=== PATIENT | female | born 1950 | race African-American/Black ===

== ENCOUNTER → 2020-06-15 | Outpatient (CLI) | payer MEDICARE ==
[~2020-06-15] MED LIST: ATOR10TA60 PO; CETI10TA16 PO; HYDR-2761 PO; LOSA1TAB25 PO; PANT40TA77 PO; POTA8CAP19 PO; SIMV20TA18 PO; atorvastatin PO
[2020-06-15 11:01] LABS: BASO % 1 % (0-3); EOS # 0.1 x10^3/uL (0.0-0.7); EOS % 1 % (0-3); HEMATOCRIT 43.6 % (36.0-47.0); HEMOGLOBIN 14.1 g/dL (12.0-15.5); LYMPH # 1.5 x10^3/uL (1.0-4.8); LYMPH % 33 % (24-48); MEAN CORPUSCULAR HEMOGLOBIN 27 pg (25-35); MEAN CORPUSCULAR HGB CONC 32 g/dL (31-37); MEAN CORPUSCULAR VOLUME 82 fL (79-100); MONO # 0.5 x10^3/uL (0.0-1.1); MONO % 12 % (0-9); NEUT # 2.3 x10^3/uL (1.8-7.7); NEUT % 52 % (31-73); PLATELET COUNT 193 x10^3/uL (140-400); RED BLOOD COUNT 5.31 x10^6/uL (3.50-5.40)
[2020-06-15 22:28] LABS: WHITE BLOOD COUNT 4.4 x10^3/uL (4.0-11.0)
[2020-06-16 17:10] LABS: KAPPA LAMBDA RATIO 1.54 (0.26-1.65); LAMBDA FREE 13.6 mg/L (5.7-26.3)
[2020-06-19 15:12] LABS: COMMENT IMMUNOFIX SERUM Note: (.); IMMUNOGLOBULIN A 203 mg/dL (87-352); IMMUNOGLOBULIN G 1303 mg/dL (586-1602); IMMUNOGLOBULIN M 58 mg/dL (26-217)
[2020-06-19 21:08] LABS: ALBUM 3.3 g/dL (2.9-4.4); ALPHA 1 0.3 g/dL (0.0-0.4); ALPHA 2 0.9 g/dL (0.4-1.0); BETA 0.9 g/dL (0.7-1.3); GAMMA 1.3 g/dL (0.4-1.8); PROTEIN TOTAL 6.7 g/dL (6.0-8.5)
== END ==
LOC: ONCLAB 10:08
PROVIDERS: ATTEND Internal Medicine Hematology & Oncology
DX: C86.6 Primary cutaneous CD30-positive T-cell proliferations (principal)
CPT/HCPCS: 36415; 82784; 83520; 83615; 84165; 85025; 86334; 86703; 86705; 86709; 86803; 87340; 88184; 88185

== ENCOUNTER → 2020-06-16 | Outpatient (CLI) | payer MEDICARE ==
--- NOTE | 2020-06-16 13:50 | RAD ---
EXAM: NM PET/CT SKULL BASE TO MID THIGH EXAM DATE: 06/16/2020 INDICATION: Primary cutaneous T-cell lymphoma. By report, patient has not yet received the Covid vacc ine. RADIOPHARMACEUTICAL: 14.8 mCi of F-18 Fluorodeoxyglucose (FDG) I.V. via the left hand. TECHNIQUE: Patient weight: 238 pounds. Following at least four-hour fasting, the patient's blood gluc ose was 103 mg/dl. Approximately 1 1/2 hours after administration of FDG, overlapping emission scann ing was performed from the orbital meatal line through the pelvis. A low-dose CT was performed for a ttenuation correction purposes and anatomic localization. Fused images of PET and CT were reviewed. Any standardized uptake values (SUV) reported are maximum values within a volume region of interest, expressed in gm/ml. COMPARISON: No relevant comparisons currently available FINDINGS: PET: In the head and neck, infrazygomatic left facial skin thickening and associated 8mm subcutaneous nodu le shows abnormal FDG uptake to max SUV of 6.0. At the inferior aspect of the left parotid gland is an ill-defined 1.3 cm nodule that shows FDG uptak e to max SUV of 4.9 (fused axial image 24 series 603, attenuation correction image 58 of axial series 3). In the chest, mildly asymmetrically larger left level 1 axillary lymph nodes show FDG uptake to max S UV of 2.0 (attenuation correction and image 108 of series 3). The background mediastinal uptake is 3. 51. In the abdomen and pelvis, no abnormal FDG uptake is identified. Background FDG activity in the liver is 3.61. No abnormal uptake in the bones. 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 There is a 1.3 cm low-density ovoid nodule in the right thyr oid (that is not hypermetabolic on PET). No cervical adenopathy. In the chest, mediastinum shows a normal sized heart with coronary calcifications along the LAD. No p ericardial effusion. No aneurysm in the thoracic aorta. Scattered calcifications at the origin of the supra aortic great vessels. No mediastinal mass or adenopathy. Unremarkable lungs show upper lobe pr edominant early centrilobular emphysematous changes. No suspicious lung nodules or masses. No pneumot horax or pleural effusion. Bony thorax is intact. No skin thickening or unexpected subcutaneous nodul es. There are 2 nodules in the inferior left breast measuring between 4 and 5 mm (image 160 of series 3) that are compatible with small lymph nodes. In the abdomen and pelvis, the liver, spleen, adrenal glands and left kidney are unremarkable. Right kidney contains a few nonobstructing stones. There is no abdominal adenopathy or mass demonstrated on noncontrast CT. Bowel shows no evidence of obstruction, perforation or obvious acute inflammation. T here are multiple colonic diverticuli primarily in the descending colon. The appendix is normal. The uterus is surgically absent. No adnexal mass or fluid collection. The osseous structures show multilevel lower lumbar spinal facet and disc degenerative changes. No ac confederated goshute or aggressive appearing osseous lesions. IMPRESSION: Abnormal FDG uptake in the left cheek and possibly in an intraparotid nodule that could represent a l ymph node or primary salivary gland mass. Ultrasound could be performed and further consideration if clinically warranted. Otherwise no abnormal FDG uptake suspicious for metabolically active disease in the included field of view. There is slightly asymmetrically larger left axillary lymph nodes that s how uptake less than background mediastinal activity and are likely reactive. Electronically signed by: Yolande Faulkner MD (06/16/2020 1:47 PM) [id number]
== END ==
LOC: PETSC 09:31
PROVIDERS: ATTEND Internal Medicine Hematology & Oncology
DX: C86.6 Primary cutaneous CD30-positive T-cell proliferations (principal)
CPT/HCPCS: 78815; A9552

== ENCOUNTER 2020-06-20 06:43 | Outpatient (CLI) | payer MEDICARE ==
[~2020-06-20] VITALS: Ht 170.2 cm; Wt 108.0 kg
[2020-06-20] VITALS (8 sets, daily range): BP systolic 82–152; BP diastolic 60–91
[~2020-06-20 06:43] MED LIST changes: -ATOR10TA60 PO; -CETI10TA16 PO; -HYDR-2761 PO; -LOSA1TAB25 PO; -PANT40TA77 PO; -POTA8CAP19 PO; -atorvastatin PO
[2020-06-20 07:30] LABS: BASO % 1 % (0-3); EOS # 0.1 x10^3/uL (0.0-0.7); EOS % 3 % (0-3); HEMATOCRIT 41.6 % (36.0-47.0); HEMOGLOBIN 13.7 g/dL (12.0-15.5); LYMPH # 1.5 x10^3/uL (1.0-4.8); LYMPH % 33 % (24-48); MEAN CORPUSCULAR HEMOGLOBIN 27 pg (25-35); MEAN CORPUSCULAR HGB CONC 33 g/dL (31-37); MEAN CORPUSCULAR VOLUME 81 fL (79-100); MONO # 0.7 x10^3/uL (0.0-1.1); MONO % 14 % (0-9); NEUT # 2.3 x10^3/uL (1.8-7.7); NEUT % 49 % (31-73); PLATELET COUNT 184 x10^3/uL (140-400); RED BLOOD COUNT 5.14 x10^6/uL (3.50-5.40); RED CELL DISTRIBUTION WIDTH 15.9 % (11.5-14.5); WHITE BLOOD COUNT 4.7 x10^3/uL (4.0-11.0)
[2020-06-20 07:39] LABS: PROTHROMBIN TIME PATIENT 13.3 SEC (11.7-14.0)
[2020-06-20] MEDS ORDERED: LIDOCAINE WITH 8.4% SOD BICARB 3 ML DISP.SYRIN. ONE (07:45)
[2020-06-20] MEDS ORDERED: MIDAZOLAM HCL/PF 2 MG/2 ML VIAL. ONE (08:11)
[2020-06-20] MEDS ORDERED: fentaNYL PF VIAL 100 MCG/2 ML VIAL ONE (08:11)
[2020-06-20] MEDS ORDERED: LOSA1TAB25 PO (08:11)
[2020-06-20] MEDS ORDERED: atorvastatin PO (08:11)
[2020-06-20] MEDS ORDERED: MIDAZOLAM HCL/PF 2 MG/2 ML VIAL. IV ONE (08:30)
[2020-06-20] MEDS ORDERED: LIDOCAINE WITH 8.4% SOD BICARB 3 ML DISP.SYRIN. IJ ONE (08:30)
[2020-06-20] MEDS ORDERED: fentaNYL PF VIAL 100 MCG/2 ML VIAL IV ONE (08:30)
--- NOTE | 2020-06-20 10:32 | NUR ---
Discharge Note: BETTY LONGORIA Discharge instructions and discharge home medications reviewed with Patient and a copy given. All questions have been answered and understanding verbalized. Dressing site remains dry and intact The following instructions and handouts were given: moderate sedation, bone marrow biopsy Discontinued lines and drains: Peripheral IV intact. Patient discharged to Home or Self Care with Family Member via Wheelchair TOMASZ HENRIQUEZ Addendum: 06/20/20 at 1034 by HOLLY TOBIN RN Amended: Links added.
--- NOTE | 2020-06-20 12:37 | RAD ---
CT-guided bone marrow biopsy. 06/20/2020 10:33 AM Indication: t-cell lymphoma Discussion: The risks and benefits of the procedure, including but not limited to, bleeding and infection were discussed patient. Informed consent was obtained. The patient was brought to the CT scanner and placed in the prone position. A timeout procedure was performed. Plant Inspector CT imaging of the pelvis demonstrated left ilium amenable to bone marrow biopsy. The overlying soft tissues were prepped and draped using maximum sterile barrier technique. 1% lidocaine without epinephrine was administered for local anesthesia. Under intermittent CT guidance, an OncControl needle was advanced into the bone marrow of the left iliac crest. 2 Aspirates and 1 core biopsy samples were obtained. Samples were delivered to pathology was present at the time of procedure. The needle was removed and manual pressure held to achieve hemostasis. No immediate complications were identified. The procedure was performed under conscious sedation including continuous cardiopulmonary monitoring via dedicated sedation nurse. Sedation time: 20 minutes Impression: Successful CT-guided bone marrow biopsy of the left iliac crest . PQRS Compliance Statement: One or more of the following individualized dose reduction techniques were utilized for this examination: 1. Automated exposure control 2. Adjustment of the mA and/or kV according to patient size 3. Use of iterative reconstruction technique
--- NOTE | 2020-06-29 14:08 | PATHOLOGY ---
[facility] Accession Number: [id number] . 01 Material submitted: . PART A: bone - BONE MARROW BIOPSY PART B: bone - BONE MARROW CLOT PART C: bone - BONE MARROW ASPIRATE SMEARS PART D: bone - PERIPHEAL BLOOD SMEAR . 01 Clinical history: . CT BONE MARROW BIOPSY T CELL LYMPHOMA . 01 Frozen section diagnosis: . . /QMS . 02 Diagnosis: Peripheral smear: - No significant pathologic abnormalities. . Bone marrow, aspirate smears, clot section, and core biopsy: - Normocellular to focally mildly hypercellular marrow showing trilineage hematopoiesis and no significant dyspoiesis - negative for lymphomatous involvement. . (JPM:leticia; 06/29/2020) QMS 06/29/2020 1155 Local . 02 Comment: The peripheral smear shows no significant pathologic abnormalities. The bone marrow is normocellular to focally mildly hypercellular and shows trilineage hematopoiesis and no significant dyspoiesis. There is no morphologic or immunophenotypic evidence of marrow involvement by T-cell lymphoma, B-cell lymphoma, acute leukemia, or plasma cell dyscrasia. (JPM:leticia; 06/29/2020) . Special stains performed: Retic stain and iron stain on A1, iron stain on B1, iron stain on C1. Immunoperoxidase stains for CD20, CD3, CD4, CD30 on A1 and for CD20, CD3, CD4 and CD30 on B1. . 02 Electronically signed: . Toni Limon MD, Pathologist NPI- [id number] . 01 Gross description: . A. The specimen is received in formalin, labeled "Nora Salmeron, BM BX". Received is a single needle core of light palacios bone measuring 1.2 cm in length by 0.3 cm in diameter. The specimen is submitted entirely in cassette A1, following light decalcification. . B. The specimen is received in formalin, labeled "Nora Salmeron, BM aspirate clot". Received is blood coagulum measuring 3.0 x 1.9 x 0.3 cm in aggregate dimensions. The specimen is filtered and entirely submitted in cassette B1. (CAA; 06/20/2020) QA/QA 06/20/2020 1622 Local . 02 Microscopic: . Laboratory Data: The WBC count is 4.7 K/CMM, and the automated WBC differential reveals 49% neutrophils, 33% lymphs, 14% monos, 3% eos, and 1% baso. The RBC count is 5.14 M/CMM, hemoglobin 13.7 G/DL, hematocrit 41.6%, MCV 81 FL, MCH 27 PG, MCHC 33 G/DL, and the RDW is 15.9%. The platelet count is 184 K/CMM. . Peripheral Smear: The peripheral smear is reviewed. The WBC count is in the low normal range. The WBC differential reveals a predominance of segmented neutrophils, with smaller populations of lymphocytes and monocytes and a few eosinophils noted. Neutrophils do not show dysplastic changes. There is no significant neutrophilic left shift. There is no leukoerythroblastic reaction. The lymphocyte population consists predominantly of small mature appearing lymphocytes. There are a few reactive lymphocytes noted. There are no obvious circulating lymphoma cells. There is a relative monocytosis. Red blood cells appear normochromic and range from normocytic to mildly microcytic. Red blood cells show no significant anisopoikilocytosis. Platelets appear normal in number and morphology with an occasional large platelet noted. . Aspirate Smears: Two Gordon's-stained and one iron-stained aspirate smears are examined. The smears contain multiple marrow particles. The M/E ratio is within normal range. Erythroid maturation appears normoblastic. There are no megaloblastic or obvious dysplastic changes. Granulopoiesis qualitatively appears normal. There is no significant left shift or dysplastic changes. There is no increase of blasts. Megakaryocytes appear adequate in number and are of variable ploidy. There are scattered admixed plasma cells with no significant increase of plasma cells noted. There are also admixed small lymphocytes which do not appear significantly increased. There is no atypical large cell lymphoid infiltrate. There are no cells foreign to the marrow. The iron stain contains a small marrow particle showing the presence of stainable iron. . Bone Marrow Biopsy and Clot Section: Sections of the bone marrow biopsy reveal a segment of bone marrow which ranges between 30% and 60% cellular. The clot section contains multiple marrow particles, the majority of which range between 20% and 40% cellular. There is a good admixture of erythroid and granulocytic precursors, which are present in varying stages of maturation. There is no increase of blasts. Megakaryocytes appear adequate in number and are of variable ploidy. There are scattered admixed plasma cells with no significant increase of plasma cells noted. There is no significant increase of lymphocytes or abnormal lymphoid aggregates. There is no atypical large cell lymphoid infiltrate. There are no granulomas. There are no cells foreign to the marrow. To confirm flow cytometric findings and characterize the target cells in a tissue architectural context, a panel of immunoperoxidase stains is obtained and yields the following results: . CD20 (A1): Highlights a small population of lymphocytes having a scattered interstitial distribution. CD3 (A1): Highlights a small population of lymphocytes having a scattered interstitial distribution and focally present in a small cluster. CD4 (A1): Highlights lymphocytes and granulocytes. CD30 (A1): No CD30 positive atypical large cell lymphoid infiltrate present. CD20 (B1): Highlights a small population of lymphocytes having a scattered interstitial distribution and comprising a subpopulation of lymphocytes within a single lymphoid aggregate. CD3 (B1): Highlights a small population of lymphocytes having a scattered interstitial distribution and comprising a subpopulation of lymphocytes within a single lymphoid aggregate. CD4 (B1): Highlights lymphocytes and granulocytes. CD30 (B1): No CD30 positive atypical large cell lymphoid infiltrate present. . A reticulin stain of the biopsy shows no significant increase of reticulin fibers. An iron stain obtained on the biopsy shows focal adequate reticuloendothelial iron stores. An iron stain obtained on the clot section shows decreased iron stores. . Special Studies: Bone marrow submitted for flow cytometric analysis has a viability of 87.1%. Granulocytes comprise 76.2% of total cells and show phenotypic evidence of maturation with lack of detectible CD16 expression. The clinical significance of lack of CD16 expression of myeloid cells is unclear. Monocytes comprise 2.7% of total cells. CD45 dim, CD34 positive cells comprise 1.1% of total cells. Plasma cells comprise 0.1% of total cells. Lymphocytes comprise 18.3% of total cells. T-cells comprise 64% of lymphoid cells and show a CD4/CD8 ratio of 1.3. NK-cells comprise 3% of lymphoid cells. Mature B-cells comprise 29% of lymphoid cells and are polyclonal with a kappa:lambda ratio of 1.8. No abnormal T-cell or B-cell population is identified. . Bone marrow submitted for cytogenetic analysis shows a normal female karyotype in all cells analyzed. . (JPM:ye/leticia; 06/29/2020) . 02 Pathologist provided ICD-10: D75.89 . 02 CPT . 096674, 441053, 603804, 946005, 313950, 357248, 838232, 723038, U96004, [id number], 377984 Specimen Comment: Report sent to / Performed at: [address] [facility] [address] [facility] [address], [place] [id number] MD Marc Vasques MD Phone: [phone] Performed at: 02 [facility] [address] [place], [place] [id number] MD Toni Limon MD Phone: [phone]
[2020-07-03] MEDS ORDERED: ATOR10TA60 PO (09:38)
[2020-09-30] MEDS ORDERED: POTA8CAP19 PO (07:58)
[2020-09-30] MEDS ORDERED: CETI10TA16 PO (07:58)
[2020-09-30] MEDS ORDERED: PANT40TA77 PO (07:58)
== END 2020-06-20 10:25 | disposition home or self-care (01) ==
LOC: INTRAD 06:43
PROVIDERS: ATTEND Internal Medicine Hematology & Oncology
DX: C86.6 Primary cutaneous CD30-positive T-cell proliferations (principal); I10 Essential (primary) hypertension; E78.00 Pure hypercholesterolemia, unspecified; J44.9 Chronic obstructive pulmonary disease, unspecified; E66.9 Obesity, unspecified; F17.210 Nicotine dependence, cigarettes, uncomplicated; Z90.710 Acquired absence of both cervix and uterus; Z98.890 Other specified postprocedural states; Z72.89 Other problems related to lifestyle; Z79.899 Other long term (current) drug therapy; Z20.822 Contact with and (suspected) exposure to COVID-19
CPT/HCPCS: 36415; 38222; 77012; 85025; 85610; 87426; 88184; 88185; 88237; 99152; C9803; J2250; J3010; J3490; U0003; 88305; 88311; 88313; 88341; 88342

== ENCOUNTER → 2020-06-28 | Outpatient (CLI) | payer MEDICARE ==
[2020-06-20 10:00] VITALS: BP 105/71
[~2020-06-28] MED LIST changes: +ATOR10TA60 PO; +HYDR-2761 PO; +LOSA1TAB25 PO; +atorvastatin PO
[2020-06-28 09:40] LABS: CALCIUM 9.1 mg/dL (8.5-10.1); CREATININE 0.6 mg/dL (0.6-1.0); GFR 120.3; POTASSIUM 3.8 mmol/L (3.5-5.1)
[2020-06-28 09:48] LABS: ALBUMIN 3.2 g/dL (3.4-5.0); ALBUMIN/GLOBULIN RATIO 0.8 (1.0-1.7); TOTAL BILIRUBIN 0.4 mg/dL (0.2-1.0)
== END ==
LOC: ONCLAB 09:02
PROVIDERS: ATTEND Internal Medicine Hematology & Oncology
DX: C86.6 Primary cutaneous CD30-positive T-cell proliferations (principal)
CPT/HCPCS: 36415; 80053

== ENCOUNTER 2020-07-04 08:26 | Day surgery (SDC) | payer MEDICARE ==
[~2020-07-04] VITALS: Ht 170.2 cm; Wt 108.0 kg
[~2020-07-04 08:26] MED LIST changes: +HEPARIN 1,000 UNIT in IV NORMAL SALINE 1,000 ML for SURG PERIOP IRR ONE; +HEPARIN SODIUM 5,000 UNIT in IV NORMAL SALINE 500ML BAG 500 ML IRR ONE; -HYDR-2761 PO; +HYDROmorphone 2 MG/ML VIAL IVP PRN; +IV RINGERS,LACTATED 1000ML 1,000 ML IV SCH; +LIDOCAINE 2% PF 5 ML VIAL. ONE; +MORPHINE SULFATE 2 MG/ML VIAL. IVP PRN; +PROCHLORPERAZINE 10 MG/2 ML VIAL. IVP PRN; +PROPOFOL 10 MG/ML (20ML) VIAL. IV ONE; +fentaNYL PF VIAL 100 MCG/2 ML VIAL IVP PRN; +fentaNYL PF VIAL 100 MCG/2 ML VIAL ONE
[2020-07-04] MEDS ORDERED: BUPIVACAINE-EPI 0.5% 30 ML VIAL KIT. ONE (09:14)
[2020-07-04] MEDS ORDERED: PHENYLEPHRINE in 0.9% NACL PF 1 MG/10 ML SYRINGE. IV ONE (09:55)
[2020-07-04] MEDS ORDERED: SEVOFLURANE 61 TO 120 MINUTES. IH ONE (09:55)
[2020-07-04] MEDS ORDERED: ePHEDrine PF IN SALINE 50 MG/10 ML SYRINGE. IV ONE (10:07)
[2020-07-04] MEDS ORDERED: ONDANSETRON PF 4 MG/2 ML VIAL. ONE (10:30)
[2020-07-04] MEDS ORDERED: DEXAMETHASONE SOD PHOS 4 MG/ML VIAL ONE (10:30)
--- NOTE | 2020-07-04 11:32 | PDOC4 ---
Operative Note Operative Note Operative Note: Preoperative Diagnosis: Cutaneous lymphoma Postoperative Diagnosis: Same Procedure: Placement of Power Port-A-Cath using SonoSite guidance, biopsy of posterior neck skin lesion Surgeon: Aditya Chemical Strength Tester: Kathi CONTE Anesthesia: Gen. EBL: 10 mL Specimen: None Drains: None Complications: None Indication: The patient is a 69 year old female who was diagnosed with cutaneous lymphoma. A request was made for placement of a Port-A-Cath to allow for chemotherapy treatment. In addition she demonstrated some changes of the skin of the posterior neck and a request was made for a skin biopsy. The details and risks of the procedure were discussed. The risks include bleeding, infection, vessel injury, pneumothorax, pain, anesthetic risk, port, catheter or tubing malfunction or dysfunction, potential need for additional surgery or procedure. The patient understands and would like to proceed. Description: The patient was placed supine on the operating table and general anesthesia was performed. The bilateral neck and chest were prepped with ChloraPrep and draped in a standard surgical manner. With SonoSite ultrasound guidance the right internal jugular vein was readily identified and appeared patent. Entry was made into the vein with the skinny introducer needle under ultrasound guidance. The skinny guidewire passed readily into the central venous system. A small incision was made at the skin exit site. The skinny sheath was then placed over the guidewire. The larger guidewire was then placed within the sheath into the central venous system. Intraoperative fluoroscopy confirmed good position of the guidewire in the central venous system. The dilator and sheath were then placed over the guidewire. The catheter portion was then inserted into the central venous system and visualized using fluoroscopy. A separate right upper chest skin incision was made with a scalpel. A subcutaneous pocket was developed with cautery of sufficient size to accommodate the port. The catheter was then tunneled subcutaneously to the level of the newly formed pocket. Using fluoroscopy the catheter was positioned with the tip in the distal superior vena cava. The catheter was then cut and assembled to the port. The port was then secured to the chest wall with two 2-0 Prolene sutures. Using the Fernandez needle the port readily aspirated and flushed without difficulty. Fluoroscopy confirmed good positioning of the catheter with no twists or kinks. The subcutaneous tissue was approximated with 3-0 Vicryl. The skin was then closed with 4-0 Monocryl. A sterile OpSite dressing was then applied. The patient was then repositioned with her right side down on the operating table. The posterior neck was exposed and prepped with Betadine and draped in a standard surgical manner. With a scalpel an elliptical incision was made around an area of the mid posterior neck representing the involved skin. Sharp dissection was used for full-thickness excision of the skin and the specimen was sent to pathology fresh. Hemostasis was achieved with cautery. The skin was approximated with in terrupted 4-0 nylon sutures. A sterile dressing was applied. The patient tolerated the procedure well and was sent to the recovery room in stable condition. At the end of the case all counts were correct. TOYA BELL MD Jul 04, 2020 11:32
--- NOTE | 2020-07-04 11:35 | DISCH ---
DISCHARGE INSTRUCTIONS Condition on Discharge Condition on Discharge: Stable Activity After Discharge Activity Instructions for Disc: Activity as tolerated Diet after Discharge Diet after Discharge: Regular Wound Incision Care Wound/Incision Care: Keep wound/cast CDI, Other, see below (keep chest dressing clean and dry; keep neck dressing clean and dry X 72 hours, may then remove and wash) Follow-Up Follow up with: Dr Bell in 1-2 weeks in the office, call for appointment [phone] TOYA BELL MD Jul 04, 2020 11:35
[2020-07-04] MEDS ORDERED: HYDR-2761 PO (11:45)
[2020-07-04] MEDS ORDERED: HYDROcodone/APAP 5/325MG 1 TAB TABLET PO ONE ×2 (11:45)
[2020-07-04 12:35] VITALS: BP 124/76
--- NOTE | 2020-07-04 16:26 | RAD ---
Portable chest x-ray without comparison for Port-A-Cath placement. FINDINGS: Right IJ Port-A-Cath is present with the distal tip in the right brachycephalic vein. No pn eumothorax or pleural effusion. Possible atelectasis or infiltrate in the left lung base. IMPRESSION: 1. Possible left basilar infiltrate versus atelectasis. 2. No pneumothorax or pleural effusion status post port placement. Electronically signed by: Girma Juan MD (07/04/2020 4:24 PM) [id number]
== END 2020-07-04 13:23 | disposition home or self-care (01) ==
LOC: SURG 08:26
PROVIDERS: ATTEND Surgery
DX: Z45.2 Encounter for adjustment and management of vascular access device (principal); Z20.822 Contact with and (suspected) exposure to COVID-19; E78.00 Pure hypercholesterolemia, unspecified; I10 Essential (primary) hypertension; J44.9 Chronic obstructive pulmonary disease, unspecified; E66.9 Obesity, unspecified; K21.9 Gastro-esophageal reflux disease without esophagitis; M19.90 Unspecified osteoarthritis, unspecified site; F17.210 Nicotine dependence, cigarettes, uncomplicated; Z79.899 Other long term (current) drug therapy; Z98.890 Other specified postprocedural states; Z88.8 Allergy status to other drugs, medicaments and biological substances
CPT/HCPCS: 36561; 71045; 76937; 77001; 87426; 88305; 88313; 88341; 88342; A4364; A4930; A6258; A6402; C1788; C1892; C9803; J0690; J1100; J1644; J2370; J2405; J2704; J3010; J7040; U0003; 76000; A4452; A4657; J7030

== ENCOUNTER → 2020-07-12 | Outpatient (CLI) | payer MEDICARE ==
[2020-07-04 12:35] VITALS: BP 124/76
[~2020-07-12] MED LIST changes: -HEPARIN 1,000 UNIT in IV NORMAL SALINE 1,000 ML for SURG PERIOP IRR ONE; -HEPARIN SODIUM 5,000 UNIT in IV NORMAL SALINE 500ML BAG 500 ML IRR ONE; +HYDR-2761 PO; -HYDROmorphone 2 MG/ML VIAL IVP PRN; -IV RINGERS,LACTATED 1000ML 1,000 ML IV SCH; -LIDOCAINE 2% PF 5 ML VIAL. ONE; -MORPHINE SULFATE 2 MG/ML VIAL. IVP PRN; -PROCHLORPERAZINE 10 MG/2 ML VIAL. IVP PRN; -PROPOFOL 10 MG/ML (20ML) VIAL. IV ONE; -fentaNYL PF VIAL 100 MCG/2 ML VIAL IVP PRN; -fentaNYL PF VIAL 100 MCG/2 ML VIAL ONE
[2020-07-12 08:20] LABS: BASO # 0.1 x10^3/uL (0.0-0.2); BASO % 2 % (0-3); EOS # 0.1 x10^3/uL (0.0-0.7); EOS % 2 % (0-3); HEMATOCRIT 40.3 % (36.0-47.0); HEMOGLOBIN 13.3 g/dL (12.0-15.5); LYMPH # 1.2 x10^3/uL (1.0-4.8); LYMPH % 25 % (24-48); MEAN CORPUSCULAR HEMOGLOBIN 27 pg (25-35); MEAN CORPUSCULAR HGB CONC 33 g/dL (31-37); MEAN CORPUSCULAR VOLUME 81 fL (79-100); MONO # 0.7 x10^3/uL (0.0-1.1); MONO % 15 % (0-9); NEUT # 2.7 x10^3/uL (1.8-7.7); NEUT % 57 % (31-73); PLATELET COUNT 184 x10^3/uL (140-400); RED BLOOD COUNT 4.95 x10^6/uL (3.50-5.40); RED CELL DISTRIBUTION WIDTH 15.4 % (11.5-14.5); WHITE BLOOD COUNT 4.8 x10^3/uL (4.0-11.0)
[2020-07-12 08:33] LABS: CALCIUM 9.4 mg/dL (8.5-10.1); CREATININE 0.6 mg/dL (0.6-1.0); GFR 120.3; POTASSIUM 3.8 mmol/L (3.5-5.1)
[2020-07-12 08:39] LABS: ALBUMIN/GLOBULIN RATIO 0.7 (1.0-1.7); TOTAL BILIRUBIN 0.4 mg/dL (0.2-1.0); TOTAL PROTEIN 7.2 g/dL (6.4-8.2)
== END ==
LOC: ONCLAB 08:04
PROVIDERS: ATTEND Internal Medicine Hematology & Oncology
DX: C86.6 Primary cutaneous CD30-positive T-cell proliferations (principal)
CPT/HCPCS: 36415; 80053; 85025

== ENCOUNTER → 2020-07-19 | Outpatient (CLI) | payer MEDICARE ==
[2020-07-04 12:35] VITALS: BP 124/76
[2020-07-19 08:46] LABS: BASO % 1 % (0-3); EOS # 0.1 x10^3/uL (0.0-0.7); EOS % 2 % (0-3); HEMATOCRIT 38.8 % (36.0-47.0); HEMOGLOBIN 12.8 g/dL (12.0-15.5); LYMPH # 1.1 x10^3/uL (1.0-4.8); LYMPH % 28 % (24-48); MEAN CORPUSCULAR HEMOGLOBIN 27 pg (25-35); MEAN CORPUSCULAR HGB CONC 33 g/dL (31-37); MEAN CORPUSCULAR VOLUME 81 fL (79-100); MONO # 0.5 x10^3/uL (0.0-1.1); MONO % 12 % (0-9); NEUT # 2.3 x10^3/uL (1.8-7.7); NEUT % 58 % (31-73); PLATELET COUNT 171 x10^3/uL (140-400); RED BLOOD COUNT 4.79 x10^6/uL (3.50-5.40); RED CELL DISTRIBUTION WIDTH 15.4 % (11.5-14.5); WHITE BLOOD COUNT 3.9 x10^3/uL (4.0-11.0)
[2020-07-19 08:57] LABS: ALBUMIN 2.9 g/dL (3.4-5.0); ALBUMIN/GLOBULIN RATIO 0.7 (1.0-1.7); CALCIUM 9.3 mg/dL (8.5-10.1); CREATININE 0.6 mg/dL (0.6-1.0); GFR 119.9; POTASSIUM 3.4 mmol/L (3.5-5.1); TOTAL BILIRUBIN 0.4 mg/dL (0.2-1.0)
== END ==
LOC: ONCLAB 08:17
PROVIDERS: ATTEND Internal Medicine Hematology & Oncology
DX: C86.6 Primary cutaneous CD30-positive T-cell proliferations (principal)
CPT/HCPCS: 36415; 80053; 85025

== ENCOUNTER → 2020-08-02 | Outpatient (CLI) | payer MEDICARE ==
[2020-07-04 12:35] VITALS: BP 124/76
[2020-08-02 08:30] LABS: CALCIUM 9.1 mg/dL (8.5-10.1); CREATININE 0.7 mg/dL (0.6-1.0); GFR 100.4; POTASSIUM 3.8 mmol/L (3.5-5.1)
[2020-08-02 08:31] LABS: BASO % 1 % (0-3); EOS % 0 % (0-3); HEMATOCRIT 40.5 % (36.0-47.0); HEMOGLOBIN 13.2 g/dL (12.0-15.5); LYMPH # 1.5 x10^3/uL (1.0-4.8); LYMPH % 30 % (24-48); MEAN CORPUSCULAR HEMOGLOBIN 27 pg (25-35); MEAN CORPUSCULAR HGB CONC 33 g/dL (31-37); MEAN CORPUSCULAR VOLUME 81 fL (79-100); MONO # 1.5 x10^3/uL (0.0-1.1); MONO % 29 % (0-9); NEUT % 40 % (31-73); PLATELET COUNT 284 x10^3/uL (140-400); RED BLOOD COUNT 4.99 x10^6/uL (3.50-5.40); RED CELL DISTRIBUTION WIDTH 16.3 % (11.5-14.5)
[2020-08-02 08:36] LABS: ALBUMIN 2.9 g/dL (3.4-5.0); ALBUMIN/GLOBULIN RATIO 0.7 (1.0-1.7); TOTAL BILIRUBIN 0.3 mg/dL (0.2-1.0); TOTAL PROTEIN 7.2 g/dL (6.4-8.2)
[2020-08-02 09:30] LABS: % LYMPHS 38 % (24-48); % MONOS 36 % (0-10); % SEGS 26 % (35-66); PLT ESTIMATE ADEQUATE (ADEQUATE)
== END ==
LOC: ONCLAB 08:06
PROVIDERS: ATTEND Internal Medicine Hematology & Oncology
DX: C86.6 Primary cutaneous CD30-positive T-cell proliferations (principal)
CPT/HCPCS: 36415; 80053; 83615; 85007; 85025

== ENCOUNTER → 2020-08-23 | Outpatient (CLI) | payer MEDICARE ==
[2020-08-23 10:15] LABS: BASO % 1 % (0-3); EOS % 0 % (0-3); HEMATOCRIT 40.9 % (36.0-47.0); HEMOGLOBIN 13.5 g/dL (12.0-15.5); LYMPH # 1.4 x10^3/uL (1.0-4.8); LYMPH % 30 % (24-48); MEAN CORPUSCULAR HEMOGLOBIN 27 pg (25-35); MEAN CORPUSCULAR HGB CONC 33 g/dL (31-37); MEAN CORPUSCULAR VOLUME 81 fL (79-100); MONO # 1.3 x10^3/uL (0.0-1.1); MONO % 29 % (0-9); NEUT # 1.9 x10^3/uL (1.8-7.7); NEUT % 40 % (31-73); PLATELET COUNT 245 x10^3/uL (140-400); RED BLOOD COUNT 5.05 x10^6/uL (3.50-5.40); RED CELL DISTRIBUTION WIDTH 16.4 % (11.5-14.5); WHITE BLOOD COUNT 4.7 x10^3/uL (4.0-11.0)
[2020-08-23 10:25] LABS: CALCIUM 9.3 mg/dL (8.5-10.1); CREATININE 0.7 mg/dL (0.6-1.0); GFR 100.4; POTASSIUM 3.5 mmol/L (3.5-5.1)
[2020-08-23 10:34] LABS: ALBUMIN 3.2 g/dL (3.4-5.0); ALBUMIN/GLOBULIN RATIO 0.8 (1.0-1.7); TOTAL BILIRUBIN 0.4 mg/dL (0.2-1.0); TOTAL PROTEIN 7.3 g/dL (6.4-8.2)
[2020-08-23 12:27] LABS: % BANDS 1 % (0-9); % LYMPHS 30 % (24-48); % MONOS 30 % (0-10); % MYELOS 1 % (0-0); % SEGS 38 % (35-66); PLT ESTIMATE ADEQUATE (ADEQUATE)
== END ==
LOC: ONCLAB 09:08
PROVIDERS: ATTEND Internal Medicine Hematology & Oncology
DX: C86.6 Primary cutaneous CD30-positive T-cell proliferations (principal)
CPT/HCPCS: 36415; 80053; 83615; 85007; 85025

== ENCOUNTER → 2020-09-13 | Outpatient (CLI) | payer MEDICARE ==
[2020-09-13 09:07] LABS: BASO % 1 % (0-3); EOS % 0 % (0-3); HEMATOCRIT 38.9 % (36.0-47.0); HEMOGLOBIN 12.9 g/dL (12.0-15.5); LYMPH # 1.5 x10^3/uL (1.0-4.8); LYMPH % 34 % (24-48); MEAN CORPUSCULAR HEMOGLOBIN 27 pg (25-35); MEAN CORPUSCULAR HGB CONC 33 g/dL (31-37); MEAN CORPUSCULAR VOLUME 81 fL (79-100); MONO # 1.3 x10^3/uL (0.0-1.1); MONO % 29 % (0-9); NEUT # 1.6 x10^3/uL (1.8-7.7); NEUT % 36 % (31-73); PLATELET COUNT 241 x10^3/uL (140-400); RED BLOOD COUNT 4.83 x10^6/uL (3.50-5.40); RED CELL DISTRIBUTION WIDTH 17.6 % (11.5-14.5); WHITE BLOOD COUNT 4.4 x10^3/uL (4.0-11.0)
[2020-09-13 09:18] LABS: CALCIUM 9.1 mg/dL (8.5-10.1); CREATININE 0.7 mg/dL (0.6-1.0); GFR 100.4; POTASSIUM 3.3 mmol/L (3.5-5.1)
[2020-09-13 09:24] LABS: ALBUMIN 3.1 g/dL (3.4-5.0); ALBUMIN/GLOBULIN RATIO 0.8 (1.0-1.7); TOTAL BILIRUBIN 0.4 mg/dL (0.2-1.0)
--- NOTE | 2020-09-13 12:53 | RAD ---
EXAM: Abdomen, single view. HISTORY: Constipation. COMPARISON: None. FINDINGS: A frontal view of the abdomen is obtained. There is moderate colonic stool. There is no dulce dence of bowel obstruction. The upper abdomen is excluded from the empji-de-lbvs. There is degenerati ve change at the lower lumbar levels. IMPRESSION: Moderate colonic stool. Electronically signed by: Marie Pimentel MD (09/13/2020 12:51 PM) [id number]
== END ==
LOC: ONCLAB 08:41
PROVIDERS: ATTEND Physician Assistant
DX: C86.6 Primary cutaneous CD30-positive T-cell proliferations (principal)
CPT/HCPCS: 36415; 74018; 80053; 83615; 85025

== ENCOUNTER → 2020-09-27 | Outpatient (CLI) | payer MEDICARE ==
[~2020-09-27] MED LIST changes: +CETI10TA16 PO; +PANT40TA77 PO; +POTA8CAP19 PO
[2020-09-27 09:40] LABS: ALBUMIN 3.3 g/dL (3.4-5.0); ALBUMIN/GLOBULIN RATIO 0.8 (1.0-1.7); CALCIUM 9.8 mg/dL (8.5-10.1); CREATININE 1.1 mg/dL (0.6-1.0); GFR 59.6; TOTAL BILIRUBIN 0.7 mg/dL (0.2-1.0); TOTAL PROTEIN 7.3 g/dL (6.4-8.2)
[2020-09-27 09:43] LABS: POTASSIUM 2.9 mmol/L (3.5-5.1)
[2020-09-27 10:23] LABS: BASO % 1 % (0-3); EOS % 1 % (0-3); HEMOGLOBIN 12.4 g/dL (12.0-15.5); LYMPH # 0.8 x10^3/uL (1.0-4.8); LYMPH % 40 % (24-48); MEAN CORPUSCULAR HEMOGLOBIN 27 pg (25-35); MEAN CORPUSCULAR HGB CONC 33 g/dL (31-37); MEAN CORPUSCULAR VOLUME 80 fL (79-100); MONO # 0.8 x10^3/uL (0.0-1.1); MONO % 39 % (0-9); NEUT # 0.4 x10^3/uL (1.8-7.7); NEUT % 18 % (31-73); PLATELET COUNT 279 x10^3/uL (140-400); RED BLOOD COUNT 4.63 x10^6/uL (3.50-5.40); RED CELL DISTRIBUTION WIDTH 17.3 % (11.5-14.5); WHITE BLOOD COUNT 2.1 x10^3/uL (4.0-11.0)
== END ==
LOC: ONCLAB 08:30
PROVIDERS: ATTEND Physician Assistant
DX: C86.6 Primary cutaneous CD30-positive T-cell proliferations (principal)
CPT/HCPCS: 36415; 80053; 85025

== ENCOUNTER → 2020-09-29 | Outpatient (CLI) | payer MEDICARE ==
[~2020-09-29] MED LIST changes: +CONTRAST GIVEN. MC PRN; +IOHEXOL 240 MG/ML 50ML VIAL. PO ONE; +IOHEXOL 300 MG/ML 100ML VIAL. IV ONE
--- NOTE | 2020-09-29 16:47 | RAD ---
Exam: CT of abdomen and pelvis with contrast INDICATION: T-cell lymphoma TECHNIQUE: Sequential axial images through the abdomen and pelvis obtained following the administrati on of 75 mL of Isovue-370 IV contrast. Sagittal and coronal reformatted images were reconstructed fro m the axial data and reviewed. Exposure: One or more of the following in the visualized dose reduction techniques were utilized for this examination: 1. Automated exposure control 2. Adjustment of the MA and/or KV according to patient size 3. Use of iterative of reconstructive technique Comparisons: 06/16/2020 FINDINGS: Heart size is normal. No pericardial effusion. Visualized lung bases are clear. No pleural effusion. Diffuse hepatic steatosis. Heterogenous appearance the liver with numerous vague hypoattenuating subc entimeter lesions noted diffusely throughout the liver. Spleen, gallbladder and adrenals are unremarkable. There is mild fat stranding surrounding the head o f the pancreas. No peripancreatic fluid collection or ductal dilatation. No perinephric inflammation or hydronephrosis. No renal or ureteral calculi are identified. Bladder is partially distended and not well evaluated. Prostate is not enlarged. Diverticulosis noted at the sigmoid without evidence of acute diverticulitis. Large amount stool is n oted in the ascending and transverse colon. No free intra-abdominal air or fluid. No obstruction. Abdominal aorta has a normal course and caliber. Abdominal vasculature is patent. No enlarged intra-abdominal lymph nodes are identified. Several prominent but not enlarged bilateral inguinal lymph nodes are seen. No suspicious osseous lesions or acute fractures. IMPRESSION: 1. There is stranding and edema surrounding the pancreatic head favored related to acute pancreatiti s. No peripancreatic fluid collection. 2. Heterogenous appearance of the liver with numerous subcentimeter hypoattenuating areas, could rel ate to a diffuse infiltrative process may relate to history of lymphoma. MRI of the liver could mary anne r evaluate. Electronically signed by: Jayde Saez MD (09/29/2020 4:44 PM) [facility]
== END ==
LOC: CT 14:53
PROVIDERS: ATTEND Physician Assistant
DX: C86.6 Primary cutaneous CD30-positive T-cell proliferations (principal); K57.30 Diverticulosis of large intestine without perforation or abscess without bleeding
CPT/HCPCS: 74177; Q9966; Q9967

== ENCOUNTER → 2020-09-29 | Outpatient (CLI) | payer MEDICARE ==
[~2020-09-29] MED LIST changes: -CONTRAST GIVEN. MC PRN; -IOHEXOL 240 MG/ML 50ML VIAL. PO ONE; -IOHEXOL 300 MG/ML 100ML VIAL. IV ONE
[2020-09-29 08:52] LABS: CALCIUM 9.4 mg/dL (8.5-10.1); GFR 66.5; POTASSIUM 3.3 mmol/L (3.5-5.1)
[2020-09-29 08:59] LABS: ALBUMIN/GLOBULIN RATIO 0.8 (1.0-1.7); TOTAL BILIRUBIN 0.7 mg/dL (0.2-1.0); TOTAL PROTEIN 6.9 g/dL (6.4-8.2)
[2020-09-29 09:31] LABS: MAGNESIUM 1.7 mg/dL (1.8-2.4)
== END ==
LOC: ONCLAB 08:24
PROVIDERS: ATTEND Physician Assistant
DX: C86.6 Primary cutaneous CD30-positive T-cell proliferations (principal)
CPT/HCPCS: 36415; 80053; 82150; 83690; 83735

== ENCOUNTER → 2020-10-06 | Outpatient (CLI) | payer MEDICARE ==
[2020-10-05 07:00] VITALS: BP 158/76
[2020-10-06 11:02] LABS: BASO % 1 % (0-3); EOS % 0 % (0-3); HEMATOCRIT 34.7 % (36.0-47.0); HEMOGLOBIN 11.5 g/dL (12.0-15.5); LYMPH # 1.6 x10^3/uL (1.0-4.8); LYMPH % 29 % (24-48); MEAN CORPUSCULAR HEMOGLOBIN 27 pg (25-35); MEAN CORPUSCULAR HGB CONC 33 g/dL (31-37); MEAN CORPUSCULAR VOLUME 80 fL (79-100); MONO # 1.6 x10^3/uL (0.0-1.1); MONO % 28 % (0-9); NEUT # 2.4 x10^3/uL (1.8-7.7); NEUT % 43 % (31-73); PLATELET COUNT 164 x10^3/uL (140-400); RED BLOOD COUNT 4.31 x10^6/uL (3.50-5.40); RED CELL DISTRIBUTION WIDTH 19.4 % (11.5-14.5); WHITE BLOOD COUNT 5.6 x10^3/uL (4.0-11.0)
[2020-10-06 11:08] LABS: CALCIUM 8.9 mg/dL (8.5-10.1); CREATININE 0.8 mg/dL (0.6-1.0); GFR 86.1; POTASSIUM 3.6 mmol/L (3.5-5.1)
[2020-10-06 11:15] LABS: ALBUMIN 2.7 g/dL (3.4-5.0); ALBUMIN/GLOBULIN RATIO 0.7 (1.0-1.7); TOTAL BILIRUBIN 0.6 mg/dL (0.2-1.0); TOTAL PROTEIN 6.4 g/dL (6.4-8.2)
== END ==
LOC: ONCLAB 10:37
PROVIDERS: ATTEND Internal Medicine Hematology & Oncology
DX: C86.6 Primary cutaneous CD30-positive T-cell proliferations (principal)
CPT/HCPCS: 36415; 80053; 85025

== ENCOUNTER → 2020-10-12 | Outpatient (CLI) | payer MEDICARE ==
[2020-10-05 07:00] VITALS: BP 158/76
[2020-10-12 14:16] LABS: BASO # 0.1 x10^3/uL (0.0-0.2); BASO % 1 % (0-3); EOS % 1 % (0-3); HEMATOCRIT 36.2 % (36.0-47.0); HEMOGLOBIN 11.8 g/dL (12.0-15.5); LYMPH # 1.3 x10^3/uL (1.0-4.8); LYMPH % 28 % (24-48); MEAN CORPUSCULAR HEMOGLOBIN 26 pg (25-35); MEAN CORPUSCULAR HGB CONC 33 g/dL (31-37); MEAN CORPUSCULAR VOLUME 81 fL (79-100); MONO # 0.7 x10^3/uL (0.0-1.1); MONO % 15 % (0-9); NEUT # 2.7 x10^3/uL (1.8-7.7); NEUT % 56 % (31-73); PLATELET COUNT 280 x10^3/uL (140-400); RED BLOOD COUNT 4.48 x10^6/uL (3.50-5.40); RED CELL DISTRIBUTION WIDTH 21.1 % (11.5-14.5); WHITE BLOOD COUNT 4.9 x10^3/uL (4.0-11.0)
[2020-10-12 14:29] LABS: CALCIUM 9.8 mg/dL (8.5-10.1); CREATININE 0.8 mg/dL (0.6-1.0); GFR 86.1; POTASSIUM 3.7 mmol/L (3.5-5.1)
[2020-10-12 14:36] LABS: ALBUMIN 2.8 g/dL (3.4-5.0); ALBUMIN/GLOBULIN RATIO 0.7 (1.0-1.7); TOTAL BILIRUBIN 0.5 mg/dL (0.2-1.0); TOTAL PROTEIN 7.1 g/dL (6.4-8.2)
[2020-10-12 16:33] LABS: ANISOCYTOSIS MOD; PLT ESTIMATE ADEQUATE (ADEQUATE)
== END ==
LOC: ONCLAB 11:56
PROVIDERS: ATTEND Physician Assistant
DX: C86.6 Primary cutaneous CD30-positive T-cell proliferations (principal)
CPT/HCPCS: 36415; 80053; 82150; 83690; 85025

== ENCOUNTER → 2020-10-27 | Outpatient (CLI) | payer MEDICARE ==
[2020-10-05 07:00] VITALS: BP 158/76
[2020-10-27 08:49] LABS: BASO % 1 % (0-3); EOS # 0.3 x10^3/uL (0.0-0.7); EOS % 7 % (0-3); HEMATOCRIT 37.2 % (36.0-47.0); HEMOGLOBIN 12.1 g/dL (12.0-15.5); LYMPH # 1.5 x10^3/uL (1.0-4.8); LYMPH % 34 % (24-48); MEAN CORPUSCULAR HEMOGLOBIN 27 pg (25-35); MEAN CORPUSCULAR HGB CONC 33 g/dL (31-37); MEAN CORPUSCULAR VOLUME 82 fL (79-100); MONO # 0.6 x10^3/uL (0.0-1.1); MONO % 13 % (0-9); NEUT % 46 % (31-73); PLATELET COUNT 230 x10^3/uL (140-400); RED BLOOD COUNT 4.52 x10^6/uL (3.50-5.40); RED CELL DISTRIBUTION WIDTH 21.7 % (11.5-14.5); WHITE BLOOD COUNT 4.4 x10^3/uL (4.0-11.0)
[2020-10-27 09:05] LABS: CALCIUM 9.5 mg/dL (8.5-10.1); CREATININE 0.7 mg/dL (0.6-1.0); GFR 100.4; POTASSIUM 3.6 mmol/L (3.5-5.1)
[2020-10-27 09:12] LABS: ALBUMIN 3.2 g/dL (3.4-5.0); ALBUMIN/GLOBULIN RATIO 0.9 (1.0-1.7); TOTAL BILIRUBIN 0.4 mg/dL (0.2-1.0); TOTAL PROTEIN 6.9 g/dL (6.4-8.2)
[2020-10-27 11:08] LABS: ANISOCYTOSIS SLIGHT; PLT ESTIMATE ADEQUATE (ADEQUATE)
== END ==
LOC: ONCLAB 08:20
PROVIDERS: ATTEND Physician Assistant
DX: C86.6 Primary cutaneous CD30-positive T-cell proliferations (principal)
CPT/HCPCS: 36415; 80053; 83615; 85025

== ENCOUNTER → 2020-11-03 | Outpatient (CLI) | payer MEDICARE ==
[2020-10-05 07:00] VITALS: BP 158/76
[2020-11-03 09:04] LABS: BASO % 1 % (0-3); EOS # 0.1 x10^3/uL (0.0-0.7); EOS % 2 % (0-3); HEMATOCRIT 36.6 % (36.0-47.0); HEMOGLOBIN 11.8 g/dL (12.0-15.5); LYMPH # 1.9 x10^3/uL (1.0-4.8); LYMPH % 31 % (24-48); MEAN CORPUSCULAR HEMOGLOBIN 27 pg (25-35); MEAN CORPUSCULAR HGB CONC 32 g/dL (31-37); MEAN CORPUSCULAR VOLUME 83 fL (79-100); MONO # 0.6 x10^3/uL (0.0-1.1); MONO % 10 % (0-9); NEUT # 3.4 x10^3/uL (1.8-7.7); NEUT % 56 % (31-73); PLATELET COUNT 225 x10^3/uL (140-400); RED BLOOD COUNT 4.43 x10^6/uL (3.50-5.40); RED CELL DISTRIBUTION WIDTH 21.6 % (11.5-14.5)
[2020-11-03 09:15] LABS: CALCIUM 9.8 mg/dL (8.5-10.1); CREATININE 0.6 mg/dL (0.6-1.0); GFR 119.9; POTASSIUM 3.5 mmol/L (3.5-5.1)
[2020-11-03 09:21] LABS: ALBUMIN 2.8 g/dL (3.4-5.0); ALBUMIN/GLOBULIN RATIO 0.7 (1.0-1.7); TOTAL BILIRUBIN 0.4 mg/dL (0.2-1.0); TOTAL PROTEIN 6.9 g/dL (6.4-8.2)
== END ==
LOC: ONCLAB 08:58
PROVIDERS: ATTEND Internal Medicine Hematology & Oncology
DX: C86.6 Primary cutaneous CD30-positive T-cell proliferations (principal)
CPT/HCPCS: 36415; 80053; 83615; 85025

== ENCOUNTER → 2020-12-20 | Outpatient (CLI) | payer MEDICARE ==
[2020-10-05 07:00] VITALS: BP 158/76
[2020-12-20 09:59] LABS: BASO % 1 % (0-3); EOS # 0.1 x10^3/uL (0.0-0.7); EOS % 2 % (0-3); HEMATOCRIT 39.8 % (36.0-47.0); HEMOGLOBIN 13.1 g/dL (12.0-15.5); LYMPH # 1.5 x10^3/uL (1.0-4.8); LYMPH % 29 % (24-48); MEAN CORPUSCULAR HEMOGLOBIN 28 pg (25-35); MEAN CORPUSCULAR HGB CONC 33 g/dL (31-37); MEAN CORPUSCULAR VOLUME 85 fL (79-100); MONO # 0.5 x10^3/uL (0.0-1.1); MONO % 9 % (0-9); NEUT # 3.1 x10^3/uL (1.8-7.7); NEUT % 59 % (31-73); PLATELET COUNT 192 x10^3/uL (140-400); RED BLOOD COUNT 4.68 x10^6/uL (3.50-5.40); RED CELL DISTRIBUTION WIDTH 17.4 % (11.5-14.5); WHITE BLOOD COUNT 5.3 x10^3/uL (4.0-11.0)
[2020-12-20 10:08] LABS: CALCIUM 9.9 mg/dL (8.5-10.1); CREATININE 0.6 mg/dL (0.6-1.0); GFR 119.9; POTASSIUM 3.6 mmol/L (3.5-5.1)
[2020-12-20 10:13] LABS: ALBUMIN 3.2 g/dL (3.4-5.0); ALBUMIN/GLOBULIN RATIO 0.8 (1.0-1.7); TOTAL BILIRUBIN 0.5 mg/dL (0.2-1.0); TOTAL PROTEIN 7.1 g/dL (6.4-8.2)
== END ==
LOC: ONCLAB 09:16
PROVIDERS: ATTEND Physician Assistant
DX: C86.6 Primary cutaneous CD30-positive T-cell proliferations (principal)
CPT/HCPCS: 36415; 80053; 85025

== ENCOUNTER → 2021-01-03 | Outpatient (CLI) | payer MEDICARE ==
[2020-10-05 07:00] VITALS: BP 158/76
[2021-01-03 09:49] LABS: BASO % 1 % (0-3); EOS # 0.1 x10^3/uL (0.0-0.7); EOS % 2 % (0-3); HEMATOCRIT 40.2 % (36.0-47.0); HEMOGLOBIN 13.2 g/dL (12.0-15.5); LYMPH # 1.4 x10^3/uL (1.0-4.8); LYMPH % 35 % (24-48); MEAN CORPUSCULAR HEMOGLOBIN 28 pg (25-35); MEAN CORPUSCULAR HGB CONC 33 g/dL (31-37); MEAN CORPUSCULAR VOLUME 85 fL (79-100); MONO # 0.4 x10^3/uL (0.0-1.1); MONO % 11 % (0-9); NEUT % 51 % (31-73); PLATELET COUNT 213 x10^3/uL (140-400); RED BLOOD COUNT 4.74 x10^6/uL (3.50-5.40); RED CELL DISTRIBUTION WIDTH 16.8 % (11.5-14.5); WHITE BLOOD COUNT 3.9 x10^3/uL (4.0-11.0)
[2021-01-03 09:57] LABS: CALCIUM 9.7 mg/dL (8.5-10.1); CREATININE 0.7 mg/dL (0.6-1.0); GFR 100.4
[2021-01-03 10:03] LABS: ALBUMIN 3.2 g/dL (3.4-5.0); ALBUMIN/GLOBULIN RATIO 0.9 (1.0-1.7); TOTAL BILIRUBIN 0.4 mg/dL (0.2-1.0); TOTAL PROTEIN 6.7 g/dL (6.4-8.2)
== END ==
LOC: ONCLAB 09:16
PROVIDERS: ATTEND Physician Assistant
DX: C86.6 Primary cutaneous CD30-positive T-cell proliferations (principal)
CPT/HCPCS: 36415; 80053; 85025

== ENCOUNTER → 2021-01-31 | Outpatient (CLI) | payer MEDICARE ==
[2020-10-05 07:00] VITALS: BP 158/76
[2021-01-31 09:33] LABS: BASO % 1 % (0-3); EOS # 0.1 x10^3/uL (0.0-0.7); EOS % 3 % (0-3); HEMATOCRIT 41.3 % (36.0-47.0); HEMOGLOBIN 13.6 g/dL (12.0-15.5); LYMPH # 1.7 x10^3/uL (1.0-4.8); LYMPH % 40 % (24-48); MEAN CORPUSCULAR HEMOGLOBIN 28 pg (25-35); MEAN CORPUSCULAR HGB CONC 33 g/dL (31-37); MEAN CORPUSCULAR VOLUME 84 fL (79-100); MONO # 0.5 x10^3/uL (0.0-1.1); MONO % 11 % (0-9); NEUT # 1.9 x10^3/uL (1.8-7.7); NEUT % 45 % (31-73); PLATELET COUNT 200 x10^3/uL (140-400); RED BLOOD COUNT 4.94 x10^6/uL (3.50-5.40); RED CELL DISTRIBUTION WIDTH 16.1 % (11.5-14.5); WHITE BLOOD COUNT 4.3 x10^3/uL (4.0-11.0)
[2021-01-31 09:49] LABS: CALCIUM 9.6 mg/dL (8.5-10.1); CREATININE 0.6 mg/dL (0.6-1.0); GFR 119.9; POTASSIUM 3.7 mmol/L (3.5-5.1)
[2021-01-31 09:55] LABS: ALBUMIN 3.2 g/dL (3.4-5.0); ALBUMIN/GLOBULIN RATIO 0.8 (1.0-1.7); TOTAL BILIRUBIN 0.4 mg/dL (0.2-1.0); TOTAL PROTEIN 7.2 g/dL (6.4-8.2)
== END ==
LOC: ONCLAB 09:16
PROVIDERS: ATTEND Physician Assistant
DX: C86.6 Primary cutaneous CD30-positive T-cell proliferations (principal)
CPT/HCPCS: 36415; 80053; 85025

== ENCOUNTER → 2021-03-05 | Outpatient (CLI) | payer MEDICARE ==
[2020-10-05 07:00] VITALS: BP 158/76
[2021-03-05 09:41] LABS: CALCIUM 9.5 mg/dL (8.5-10.1); CREATININE 0.6 mg/dL (0.6-1.0); GFR 119.9; POTASSIUM 3.7 mmol/L (3.5-5.1)
[2021-03-05 09:46] LABS: ALBUMIN 3.3 g/dL (3.4-5.0); ALBUMIN/GLOBULIN RATIO 0.8 (1.0-1.7); TOTAL BILIRUBIN 0.3 mg/dL (0.2-1.0); TOTAL PROTEIN 7.2 g/dL (6.4-8.2)
[2021-03-05 10:01] LABS: BASO % 1 % (0-3); EOS # 0.1 x10^3/uL (0.0-0.7); EOS % 3 % (0-3); HEMATOCRIT 41.6 % (36.0-47.0); HEMOGLOBIN 13.3 g/dL (12.0-15.5); LYMPH # 1.7 x10^3/uL (1.0-4.8); LYMPH % 36 % (24-48); MEAN CORPUSCULAR HEMOGLOBIN 26 pg (25-35); MEAN CORPUSCULAR HGB CONC 32 g/dL (31-37); MEAN CORPUSCULAR VOLUME 82 fL (79-100); MONO # 0.6 x10^3/uL (0.0-1.1); MONO % 13 % (0-9); NEUT # 2.3 x10^3/uL (1.8-7.7); NEUT % 48 % (31-73); PLATELET COUNT 201 x10^3/uL (140-400); RED BLOOD COUNT 5.04 x10^6/uL (3.50-5.40); RED CELL DISTRIBUTION WIDTH 16.7 % (11.5-14.5); WHITE BLOOD COUNT 4.7 x10^3/uL (4.0-11.0)
== END ==
LOC: ONCLAB 09:07
PROVIDERS: ATTEND Physician Assistant
DX: C86.6 Primary cutaneous CD30-positive T-cell proliferations (principal)
CPT/HCPCS: 36415; 80053; 85025

== ENCOUNTER → 2021-04-06 | Outpatient (CLI) | payer MEDICARE ==
[2020-10-05 07:00] VITALS: BP 158/76
[2021-04-06 09:27] LABS: BASO # 0.1 x10^3/uL (0.0-0.2); BASO % 1 % (0-3); EOS # 0.1 x10^3/uL (0.0-0.7); EOS % 2 % (0-3); HEMATOCRIT 40.7 % (36.0-47.0); HEMOGLOBIN 13.1 g/dL (12.0-15.5); LYMPH # 1.5 x10^3/uL (1.0-4.8); LYMPH % 31 % (24-48); MEAN CORPUSCULAR HEMOGLOBIN 27 pg (25-35); MEAN CORPUSCULAR HGB CONC 32 g/dL (31-37); MEAN CORPUSCULAR VOLUME 83 fL (79-100); MONO # 0.6 x10^3/uL (0.0-1.1); MONO % 13 % (0-9); NEUT # 2.6 x10^3/uL (1.8-7.7); NEUT % 53 % (31-73); PLATELET COUNT 205 x10^3/uL (140-400); RED BLOOD COUNT 4.93 x10^6/uL (3.50-5.40); RED CELL DISTRIBUTION WIDTH 16.7 % (11.5-14.5); WHITE BLOOD COUNT 4.9 x10^3/uL (4.0-11.0)
[2021-04-06 09:41] LABS: ALBUMIN 3.1 g/dL (3.4-5.0); ALBUMIN/GLOBULIN RATIO 0.8 (1.0-1.7); CALCIUM 8.5 mg/dL (8.5-10.1); CREATININE 0.5 mg/dL (0.6-1.0); POTASSIUM 3.7 mmol/L (3.5-5.1); TOTAL BILIRUBIN 0.3 mg/dL (0.2-1.0)
== END ==
LOC: ONCLAB 09:10
PROVIDERS: ATTEND Internal Medicine Hematology & Oncology
DX: C86.6 Primary cutaneous CD30-positive T-cell proliferations (principal)
CPT/HCPCS: 36415; 80053; 85025

== ENCOUNTER → 2021-05-18 | Outpatient (CLI) | payer MEDICARE ==
[2020-10-05 07:00] VITALS: BP 158/76
[2021-05-18 09:53] LABS: BASO % 1 % (0-3); EOS # 0.1 x10^3/uL (0.0-0.7); EOS % 2 % (0-3); HEMATOCRIT 41.4 % (36.0-47.0); HEMOGLOBIN 13.3 g/dL (12.0-15.5); LYMPH # 1.8 x10^3/uL (1.0-4.8); LYMPH % 39 % (24-48); MEAN CORPUSCULAR HEMOGLOBIN 27 pg (25-35); MEAN CORPUSCULAR HGB CONC 32 g/dL (31-37); MEAN CORPUSCULAR VOLUME 85 fL (79-100); MONO # 0.5 x10^3/uL (0.0-1.1); MONO % 12 % (0-9); NEUT # 2.1 x10^3/uL (1.8-7.7); NEUT % 46 % (31-73); PLATELET COUNT 190 x10^3/uL (140-400); RED BLOOD COUNT 4.89 x10^6/uL (3.50-5.40); RED CELL DISTRIBUTION WIDTH 16.7 % (11.5-14.5); WHITE BLOOD COUNT 4.5 x10^3/uL (4.0-11.0)
[2021-05-18 10:03] LABS: CALCIUM 9.4 mg/dL (8.5-10.1); CREATININE 0.6 mg/dL (0.6-1.0); GFR 119.9; POTASSIUM 3.7 mmol/L (3.5-5.1)
[2021-05-18 10:07] LABS: ALBUMIN 3.2 g/dL (3.4-5.0); ALBUMIN/GLOBULIN RATIO 0.7 (1.0-1.7); TOTAL BILIRUBIN 0.3 mg/dL (0.2-1.0); TOTAL PROTEIN 7.6 g/dL (6.4-8.2)
== END ==
LOC: ONCLAB 09:13
PROVIDERS: ATTEND Internal Medicine Hematology & Oncology
DX: C86.6 Primary cutaneous CD30-positive T-cell proliferations (principal)
CPT/HCPCS: 36415; 80053; 85025

== ENCOUNTER → 2021-07-16 | Outpatient (CLI) | payer MEDICARE ==
[2020-10-05 07:00] VITALS: BP 158/76
[2021-07-16 10:00] LABS: BASO % 1 % (0-3); EOS # 0.1 x10^3/uL (0.0-0.7); EOS % 3 % (0-3); HEMATOCRIT 41.3 % (36.0-47.0); HEMOGLOBIN 13.2 g/dL (12.0-15.5); LYMPH # 1.5 x10^3/uL (1.0-4.8); LYMPH % 35 % (24-48); MEAN CORPUSCULAR HEMOGLOBIN 27 pg (25-35); MEAN CORPUSCULAR HGB CONC 32 g/dL (31-37); MEAN CORPUSCULAR VOLUME 84 fL (79-100); MONO # 0.6 x10^3/uL (0.0-1.1); MONO % 13 % (0-9); NEUT # 2.2 x10^3/uL (1.8-7.7); NEUT % 49 % (31-73); PLATELET COUNT 187 x10^3/uL (140-400); RED CELL DISTRIBUTION WIDTH 16.4 % (11.5-14.5); WHITE BLOOD COUNT 4.4 x10^3/uL (4.0-11.0)
[2021-07-16 10:12] LABS: CALCIUM 9.8 mg/dL (8.5-10.1); CREATININE 0.6 mg/dL (0.6-1.0); GFR 119.9; POTASSIUM 3.8 mmol/L (3.5-5.1)
[2021-07-16 10:26] LABS: ALBUMIN 3.2 g/dL (3.4-5.0); ALBUMIN/GLOBULIN RATIO 0.8 (1.0-1.7); TOTAL BILIRUBIN 0.3 mg/dL (0.2-1.0); TOTAL PROTEIN 7.1 g/dL (6.4-8.2)
== END ==
LOC: ONCLAB 09:27
PROVIDERS: ATTEND Internal Medicine Hematology & Oncology
DX: C86.6 Primary cutaneous CD30-positive T-cell proliferations (principal)
CPT/HCPCS: 36415; 80053; 85025

== ENCOUNTER → 2021-08-27 | Outpatient (CLI) | payer MEDICARE ==
[2020-10-05 07:00] VITALS: BP 158/76
[2021-08-27 10:22] LABS: CALCIUM 9.7 mg/dL (8.5-10.1); CREATININE 0.7 mg/dL (0.6-1.0); GFR 100.1; POTASSIUM 3.6 mmol/L (3.5-5.1)
[2021-08-27 10:24] LABS: BASO % 1 % (0-3); EOS # 0.1 x10^3/uL (0.0-0.7); EOS % 2 % (0-3); HEMATOCRIT 41.3 % (36.0-47.0); HEMOGLOBIN 13.5 g/dL (12.0-15.5); LYMPH # 1.4 x10^3/uL (1.0-4.8); LYMPH % 34 % (24-48); MEAN CORPUSCULAR HEMOGLOBIN 28 pg (25-35); MEAN CORPUSCULAR HGB CONC 33 g/dL (31-37); MEAN CORPUSCULAR VOLUME 84 fL (79-100); MONO # 0.5 x10^3/uL (0.0-1.1); MONO % 12 % (0-9); NEUT # 2.2 x10^3/uL (1.8-7.7); NEUT % 51 % (31-73); PLATELET COUNT 191 x10^3/uL (140-400); RED BLOOD COUNT 4.91 x10^6/uL (3.50-5.40); RED CELL DISTRIBUTION WIDTH 16.2 % (11.5-14.5); WHITE BLOOD COUNT 4.3 x10^3/uL (4.0-11.0)
[2021-08-27 10:29] LABS: ALBUMIN 3.2 g/dL (3.4-5.0); ALBUMIN/GLOBULIN RATIO 0.8 (1.0-1.7); TOTAL BILIRUBIN 0.5 mg/dL (0.2-1.0); TOTAL PROTEIN 7.4 g/dL (6.4-8.2)
== END ==
LOC: ONCLAB 09:40
PROVIDERS: ATTEND Internal Medicine Hematology & Oncology
DX: C86.6 Primary cutaneous CD30-positive T-cell proliferations (principal)
CPT/HCPCS: 36415; 80053; 85025